=== PATIENT | male | born 1995 | race Asian ===

== ENCOUNTER 2016-09-01 01:08 | Emergency (ER) | payer OTHER ==
[~2016-09-01 01:08] MED LIST: PREDNISONE50 MG PO; PROVENTIL0.09 MG/A1 PO
--- NOTE | 2016-09-01 01:22 | ED GI/GU/ABDOMINAL COMPLAINT ---
History of Present Illness General Chief Complaint: Abdominal Pain/Flank Pain Stated Complaint: RIGHT SIDE UPPER ABD PAIN Source: patient, family Exam Limitations: no limitations Vital Signs & Intake/Output Vital Signs & Intake/Output Vital Signs Date Time Temp Pulse Resp B/P B/P Pulse O2 O2 Flow FiO2 Mean Ox Delivery Rate 09/01 0321 98.8 82 18 124/72 98 Room Air 09/01 0119 97.0 77 20 127/80 100 Allergies Coded Allergies: NO KNOWN ALLERGIES (02/12/14) Reconcile Medications No Known Home Medications Triage Note: PER PT FASTING THEN ATE VERY QUICKLY, ATE SPICY FOOD AND DEVELOPED PAIN 1 [employer], [employer] [employer] Triage Nurses Notes Reviewed? yes Onset: Gradual Duration: minute(s):, better Timing: recent history Quality/Severity: RIGHT UPPER QUADRANT ABD/RIGHT RIB DISCOMFORT, Location: right upper quadrant Radiation: no radiation Activities at Onset: eating, WAS FASTING FOR RAMADAN, AND THEN ATE SPICEY FOOD. Prior Abdominal Problems: none Modifying Factors: Improves With: rest. Associated Symptoms: RIGHT RIB CAGE DISCOMFORT HPI: 20 yo gentleman presents with right upper quadrant discomfort. He notes that he was fasting for Ramadan, ate spicy foods this evening, and then developed right upper quadrant discomfort. He has no nausea, vomiting, diarrhea, chills. He shares that he is feeling better. Past History Travel History Traveled to [place] past 21 day No Medical History Any Pertinent Medical History? see below for history Neurological: NONE EENT: NONE Cardiovascular: NONE Respiratory: NONE Gastrointestinal: NONE Hepatic: NONE Renal: NONE Musculoskeletal: NONE Psychiatric: NONE Endocrine: NONE Surgical History Surgical History: none Psychosocial History What is your primary language Estonian Tobacco Use: Never used Family History Hx Contributory? No Review of Systems Review of Systems Constitutional: Reports: no symptoms. EENTM: Reports: no symptoms. Respiratory: Reports: no symptoms. Cardiovascular: Reports: no symptoms. GI: Reports: no symptoms. Genitourinary: Reports: no symptoms. Musculoskeletal: Reports: no symptoms. Skin: Reports: no symptoms. Neurological/Psychological: Reports: no symptoms. Hematologic/Endocrine: Reports: no symptoms. Immunologic/Allergic: Reports: no symptoms. All Other Systems: Reviewed and Negative Physical Exam Physical Exam General Appearance: well developed/nourished, no apparent distress Head: atraumatic, normal appearance Eyes: Bilateral: normal appearance. Ears, Nose, Throat, Mouth: hearing grossly normal Neck: normal inspection, supple, full range of motion Respiratory: normal breath sounds, right sided lower rib cage tenderness to palpation. Cardiovascular: regular rate/rhythm Gastrointestinal: normal bowel sounds, soft, non-tender Back: normal inspection Extremities: normal range of motion Neurologic/Psych: no motor/sensory deficits, awake, alert, oriented x 3 Skin: intact, normal color, warm/dry Core Measures ACS in differential dx? No Severe Sepsis Present: No Septic Shock Present: No Progress Differential Diagnosis: gerd, rib cage injury vs other. Plan of Care: Orders Procedure Date/time Status LIPASE 09/01 120 Complete COMPREHENSIVE METABOLIC PANEL 09/01 120 Complete CBC WITHOUT DIFFERENTIAL 09/01 120 Complete AMYLASE 09/01 120 Complete Laboratory Tests 09/01/16 0133: Anion Gap 12, Estimated GFR > 60, BUN/Creatinine Ratio 13.3, Glucose 79, Calcium 9.5, Total Bilirubin 0.6, AST 25, ALT 42, Alkaline Phosphatase 50, Total Protein 7.3, Albumin 4.2, Globulin 3.1, Albumin/Globulin Ratio 1.4, Amylase 113 H, Lipase 171, CBC w Diff NO MAN DIFF REQ, RBC 5.25, MCV 88.3, MCH 29.6, RDW 13.9, MPV 10.5 H, Gran % 61.0, Lymphocytes % 25.8, Monocytes % 10.3 H, Eosinophils % 2.6, Basophils % 0.3, Absolute Granulocytes 4.7, Absolute Lymphocytes 2.0, Absolute Monocytes 0.8 H, Absolute Eosinophils 0.2, Absolute Basophils 0, PUBS MCHC 33.6 Initial ED EKG: none Departure Departure Disposition: HOME OR SELF CARE Condition: Stable Clinical Impression Primary Impression: Rib pain on right side Secondary Impressions: Abdominal pain Referrals: ARMOND VALDEZ,FERNANDO (PCP/Family) Departure Forms: Customer Survey General Discharge Information Prescriptions: Current Visit Scripts No Known Home Medications Comments discussed at length with patient and family... he declines xray, mindful of xray exposure.... labs are benign and supportive medications have helped him... encouraged supportive meds and close follow up.
[2016-09-01 01:40] LABS: ABSOLUTE BASOPHIL COUNT 0 /CUMM (0.0-0.2); ABSOLUTE EOSINOPHIL COUNT 0.2 /CUMM (0.0-0.7); ABSOLUTE GRANULOCYTE CT 4.7 /CUMM (1.4-6.5); ABSOLUTE MONOCYTE COUNT 0.8 /CUMM (0.10-0.60); BASOPHIL % 0.3 % (0.0-2.0); EOSINOPHIL % 2.6 % (0-5); HEMATOCRIT 46.3 % (42-52); MEAN CORPUSCULAR HGB 29.6 PG (27.0-31.0); MEAN CORPUSCULAR HGB CONC 33.6 G/DL (33.0-37.0); MEAN CORPUSCULAR VOLUME 88.3 FL (80.0-94.0); MEAN PLATELET VOLUME 10.5 FL (7.4-10.4); PLATELET COUNT 253 /CUMM (130-400); RBC DISTRIBUTION WIDTH 13.9 % (11.5-14.5); RED BLOOD CELL CT 5.25 /CUMM (4.70-6.10); WHITE BLOOD CELL COUNT 7.8 /CUMM (4.8-10.8)
[2016-09-01 03:21] VITALS: BP 124/72
== END 2016-09-01 03:21 ==
LOC: ERH 01:08
PROVIDERS: Pediatrics
DX: R07.81 Pleurodynia (principal); R10.11 Right upper quadrant pain